=== PATIENT | female | born 1975 | race Caucasian/White ===

== ENCOUNTER 2018-07-31 10:26 | Day surgery (SDC) | payer BC, OTHER ==
[2018-07-25 12:08] VITALS: BMI 27.8
--- NOTE | 2018-07-31 07:15 | HP ---
History & Physical Update - History History: No Change - Physical Physical: No Change - Assessment Assessment: No Change - Plan Plan: No Change (Initial H&P dated 07/03/[address] Liang Barillas. No new complaints or medications. Here today for elective laminectomy L5/S1)
[~2018-07-31 10:26] MED LIST: traMADol HCL 50 MG TABLET PO ONE
[2018-07-31] MEDS ORDERED: methylPREDNISolone ACET (DEPO) 40 MG/1 ML VIAL ONE (10:55)
[2018-07-31] MEDS ORDERED: THROMBIN (RECOMBINANT) 5,000 UNIT VIAL TP ONE (10:55)
[2018-07-31] MEDS ORDERED: DEXAMETHASONE SOD PHOSPHATE/PF 10 MG/ML SDV ONE (11:05)
[2018-07-31] MEDS ORDERED: MIDAZOLAM HCL 2 MG/2 ML SINGLE DOSE VIAL ONE (11:05)
[2018-07-31] MEDS ORDERED: BUPIVACAINE HCL/PF 2.5 MG/ML - 30 ML VIAL IJ ONE (11:05)
[2018-07-31] MEDS ORDERED: BUPIVACAINE HCL/PF (5 MG/ML) 30 ML VIAL IJ ONE ×2 (11:05→12:25)
[2018-07-31] MEDS ORDERED: traMADol HCL 50 MG TABLET ONE (11:19)
[2018-07-31] MEDS ORDERED: GUM MASTIC/STORAX/MSAL/ALCOHOL 1 DRP DROPSBTL MC ONE (12:32)
[2018-07-31] MEDS ORDERED: PROPOFOL 20 ML ONE (12:43)
[2018-07-31] MEDS ORDERED: SUCCINYLCHOLINE CHLORIDE 200 MG/10 ML VIAL ONE (12:44)
[2018-07-31] MEDS ORDERED: ceFAZolin SODIUM 1 GM VIAL ONE ×2 (12:48)
[2018-07-31] MEDS ORDERED: DEXAMETHASONE SOD PHOSPHATE 4 MG/1 ML VIAL ONE (12:49)
[2018-07-31] MEDS ORDERED: ONDANSETRON 4 MG/2 ML VIAL ONE ×2 (12:49→14:53)
[2018-07-31] MEDS ORDERED: THROMBIN (BOVINE) 5,000 UNIT VIAL TP ONE ×2 (12:49→13:08)
[2018-07-31] MEDS ORDERED: methylPREDNISolone ACET (DEPO) 40 MG/1 ML VIAL IM ONE ×2 (12:50→13:08)
[2018-07-31] MEDS ORDERED: ONDANSETRON 4 MG/2 ML VIAL IVPUSH PRN (12:54)
[2018-07-31] MEDS ORDERED: oxyCODONE HCL 5 MG TABLET PO PRN (12:54)
[2018-07-31] MEDS ORDERED: LACTATED RINGERS SOLUTION 1,000 ML IV SCH (13:00)
--- NOTE | 2018-07-31 14:13 | OP ---
Operative Note - Note: Operative Date: 07/31/18 Pre-Operative Diagnosis: L5/S1 stenosis, herniated disc with radiculopathy Operation: L5/S1 bilateral laminectomy with right discectomy Post-Operative Diagnosis: Same as Pre-op Surgeon: Jabari Bower Data [employer] Specialist: Garrison Rowan Anesthesiologist/FIRST SAMPLER: Halina Pierce Anesthesia: Spinal Specimens Removed: L5/S1 disc Estimated Blood Loss (mls): 20 Fluid Volume Replaced (mls): 900 Operative Report Dictated: Yes
--- NOTE | 2018-07-31 14:14 | SURG ---
Surgery Assessment Analyst Note Assessment Analyst: Garrison Rowan PA-C Date of Service: 07/31/18 Diagnosis: L5/S1 stenosis, herniated disc with RLE radiculopathy Procedure: L5/S1 bilateral laminectomy with right discectomy I was present for the entirety of the operative procedure. For further detail, please refer to operative report. Visit type - Case Type Case Type: Scheduled - New patient This patient is new to me today: Yes Date on this admission: 07/31/18
[2018-07-31] MEDS ORDERED: oxyCODONE HCL 5 MG TABLET ONE (14:53)
[2018-07-31 16:24] VITALS: TEMP 98.3
[2018-07-31 17:40] VITALS: BP 127/73; PULSE 96
--- NOTE | 2018-07-31 18:32 | OP ---
DATE OF OPERATION: 07/31/2018 PREOPERATIVE DIAGNOSIS: Spinal stenosis, L5-S1. POSTOPERATIVE DIAGNOSIS: Spinal stenosis, L5-S1. PROCEDURE PERFORMED: Laminectomy, L5-S1. SURGEON: Jabari Bower M.D. INSPECTOR AND SORTER: Marina Mahan ESTIMATED BLOOD LOSS: 50 mL INTRAVENOUS FLUIDS: Per anesthesia. ANESTHESIA: Spinal/erector spinae block. COMPLICATIONS: There were none. DISPOSITION: Patient brought to the PACU in stable condition. INDICATION FOR SURGERY: The patient is a 43-year-old female who has been suffering from pain from her back down her legs. X-rays and MRI were completed, which noted she has spinal stenosis at L5-S1. She had gone through an exhaustive course of treatment for this which included medications, physical therapy, as well as injections. Unfortunately, the pain continued to persist in spite of all this. At this point, risks, benefits, and alternatives were discussed, and the patient consented to surgery. OPERATIVE NOTE: Patient is brought to the operating room by the anesthesia staff. After appropriate patient identification is performed, spinal anesthesia was given along with an erector spinae block. The patient was positioned prone onto the OR table with all areas of bony prominences well padded at this time. Two needles were placed into his back to daniela off the L5-S1 segment, and x-ray is taken to confirm this is correct. [place] were removed, and 10 mL of lidocaine with epinephrine was injected into his back at this time. Her back was prepped and draped in a sterile manner. At this point timeout was completed. An incision was made from the top of L5 down to the bottom of S1. Dissection was carried down to the fascia. Fascia was then split at this time, and appropriate retractors were then placed in. Then a spinal needle was placed onto the L5 lamina. An x-ray was taken to confirm this was L5-S1. The needle was removed, and microscope was brought in. At this point, the interspinous ligament at L5-S1 was removed. A portion of the L5-S1 spinous process was removed, and portions of the L5-S1 lamina were removed. The nerve root was mobilized medially. A disc herniation was noted at the time it was removed. A portion of the inferior superior facets were removed. A complete decompression was performed such that by the end of the procedure the S1 nerve roots appear to be well decompressed. All bleeding was well controlled at this time. Steroids were placed over the nerve root, Floseal was placed over that. The fascia was closed with a number 1 Vicryl suture. The subcutaneous tissue was closed with 2-0 Vicryl suture. Skin was closed with 3-0 Monocryl suture. Dermabond was applied. Steri-Strips were applied. Sterile dressing was applied. Patient was placed supine on OR bed, and brought to the PACU in stable condition. Sukhjinder [id number] MTDD
--- NOTE | 2018-08-04 14:18 | PATH ---
Surgical Pathology Report Patient Name: ESCOBAR IBARRA [facility]. Rec. #: [id number] /Age/Gender: 1975 (Age: 43) / F Account: [id number] Location: [facility] AMB[facility] Taken: 07/31/2018 Received: 07/31/2018 Reported: 08/04/2018 Physicians: Jabari Bower M.D. Specimen(s) Received L5-S1 DISC Clinical History Spinal stenosis Final Diagnosis L5-S1 DISC, DISCECTOMY: CARTILAGINOUS TISSUE WITH DEGENERATIVE CHANGE. Electronically Signed Kailyn Kinney M.D. Gross Description Received in formalin labeled "L5-S1 disc" is a 2.0 x 1.8 x 0.4 cm aggregate of pierson fragments of fibrocartilaginous tissue. The specimen is entirely submitted in one cassette. 08/01/201808/01/2018
== END 2018-07-31 17:35 | disposition home or self-care (01) ==
LOC: FASU 10:26
PROVIDERS: ATTEND Orthopaedic Surgery Orthopaedic Surgery of the Spine
PROC: 01NB0ZZ Release Lumbar Nerve, Open Approach (ICD-10-PCS; principal; 2018-07-31 13:04)
DX: M48.07 Spinal stenosis, lumbosacral region (principal)
CPT/HCPCS: 36415; 72100-TC-FY; 76000-TC-FY; 82962; 84703; 88304-TC; 94760